=== PATIENT | female | born 1995 | race Caucasian/White ===

== ENCOUNTER 2022-04-08 23:01 | Inpatient (IN) | payer SELFPAY ==
[2022-04-08] MEDS: nicotine 2 mg Gum BUCCAL (23:17)
[2022-04-08 23:31] VITALS: BMI 23.6
[2022-04-09 06:00] VITALS: RESP 15
--- NOTE | 2022-04-09 10:58 | NUR.SHIFT ---
Shift assessment done by me with AYUSH Roland, as a witness. No issues.
[2022-04-09 14:00] VITALS: BP 110/65; PULSE 92; RESP 18; TEMP 36.7; O2SAT 96
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
[2022-04-09] MEDS: nicotine 21 mg Patch 1 PATCH TRANSDERMA (18:48)
[2022-04-09 20:58] VITALS: BP 101/62; PULSE 78; RESP 18; O2SAT 96
[2022-04-10 05:51] VITALS: BP 99/62; PULSE 71; RESP 16; O2SAT 96
[2022-04-10] MEDS: nicotine 2 mg Gum BUCCAL ×3 (13:02→18:51)
[2022-04-10 14:00] VITALS: BP 96/60; PULSE 84; RESP 14; TEMP 37; O2SAT 97
--- NOTE | 2022-04-10 16:52 | W.PM.NPUPNS ---
Subjective NPU Subjective: Patient is 26 year old white female admitted and involuntarily hospitalized after having intrusive thought to hurt self by jumping in front of the tractor she was on with reports having some vague clairvoyant abilities and overvalued ideas on initial conversation. She remained compliant and cooperative on milieu. She reports good sleep. She reported no thoughts of hurting herself. She reports that she feels ready to return home. She continued to minimize her marijuana and methamphetamine use. Patient had reported some frustration with her economic situation. She denied any feelings of hopelessness or worthlessness. She denied any racing thoughts. She denied any auditory or visual hallucinations. Mental Status Exam MSE Comments: She is a thin white female who appeared her stated age. Her gait appeared within normal limits her hygiene was fair. There was no evidence of any abnormal involuntary motor movements tics or tremors appreciated. Her mood was described as good Her affect appeared flat. There was no clear evidence of delusional thinking. She did not appear to be responding to internal stimuli. Her attention appeared adequate. her concentration was fair. Speech was normal in regards to rate, rhythm and prosody. Insight appeared to be poor. Her judgment at this time is guarded. Her impulse control appeared limited at this time. Vitals/I&O/Wt Last Vital Signs Temp 98.6 F 04/10/22 14:00 Pulse 84 04/10/22 14:00 Resp 14 04/10/22 14:00 BP 96/60 04/10/22 14:00 Pulse Ox 97 04/10/22 14:00 O2 Del Method 04/08/22 23:31 Weight last 48 hrs Weight 72.575 kg A&P Assessment and plan (1) Suicidal ideation: Status: Acute (2) Impulse control disorder: Status: Acute Plan This is a 26-year-old white female who had reported having an intense intrusive thought of jumping out in front of the tractor that she was on with reports of 1 previous hospitalization in her adolescence. She does not currently endorse thoughts of hurting herself and does not report depressed mood at this time. 1. Consider medication to target anxiety/depression, patient refusing any at this time. Consider referral for substance abuse. 2.? Encourage individual, group and milieu therapy 3.? Continue q-15 minute check for safety 4.? Recommend sober living treatment at the highest level of care to which the patient is willing to commit. Involuntary Hold Information 96 Hour Hold: 96 Hour Involuntary Admission: Yes 96 Hour Hold Ending Date: 04/15/22 96 Hour Hold Ending Time: 23:00 Attestations NPU Medical Necessity Statement*: ? Inpatient hospitalization is medically necessary to prevent access to lethal means, to reevaluate any medications and to coordinate a safe discharge. Patient's likely length of stay is three to five days. Coding Level of Care Code Established Pt Acute Military Pay Technician for Chg Fwd Patient Type Established History Problem Focused Exam Problem Focused Medical Decision Making Straight Forward Diagnoses Suicidal ideation R45.851 Impulse control disorder F63.9
[2022-04-10 21:12] VITALS: BP 93/54; PULSE 81; RESP 16; TEMP 36.7; O2SAT 96
[2022-04-11 06:00] VITALS: BP 93/60; PULSE 92; RESP 16; TEMP 36.6; O2SAT 95
--- NOTE | 2022-04-11 13:26 | P.NPUPN_ITS ---
Subjective NPU Subjective: Patient is 26 year old white female admitted and involuntarily hospitalized after having intrusive thought to hurt self by jumping in front of the tractor she was on with reports having some vague clairvoyant abilities and overvalued ideas on initial conversation. Patient reports feeling better. She reports no suicidal thoughts or intrusive thoughts about jumping in front of a tractor vehicle. She had continued to minimize the use of illicit substances nor did she endorse any problems with alcohol. The patient states that she was willing to attend a counseling session when discharged. Mental Status Exam MSE Comments: She is a thin white female who appeared her stated age. Her gait appeared within normal limits her hygiene was fair. There was no evidence of any abnormal involuntary motor movements tics or tremors appreciated. Her mood was described as good Her affect appeared less restricted. There was no clear evidence of delusional thinking, she denied any auditory or visual hallucinations and did not appear to be responding to internal stimuli. Her attention appeared adequate. her concentration was fair. Speech was normal in regards to rate, rhythm and prosody. Insight appeared to be poor. Her judgment at this time is guarded. Her impulse control appeared limited. . Vitals/I&O/Wt Last Vital Signs Temp 98 F 04/11/22 14:00 Pulse 103 H 04/11/22 14:00 Resp 17 04/11/22 14:00 BP 97/63 04/11/22 14:00 Pulse Ox 98 04/11/22 14:00 O2 Del Method 04/08/22 23:31 Weight last 48 hrs Weight 75.024 kg A&P Assessment and plan (1) Suicidal ideation: Status: Acute (2) Impulse control disorder: Status: Acute Plan This is a 26-year-old white female who had reported having an intense intrusive thought of jumping out in front of the tractor that she was on with reports of 1 previous hospitalization in her adolescence. She does not currently endorse thoughts of hurting herself and does not report depressed mood at this time. 1. Consider medication to target anxiety/depression, patient refusing any at this time. Consider referral for substance abuse. Patient remains here involuntarily and we are awaiting referral for outpatient treatment 2.? Encourage individual, group and milieu therapy 3.? Continue q-15 minute check for safety 4.? Recommend sober living treatment at the highest level of care to which the patient is willing to commit. Involuntary Hold Information 96 Hour Hold: 96 Hour Involuntary Admission: Yes 96 Hour Hold Ending Date: 04/15/22 96 Hour Hold Ending Time: 23:00 Attestations NPU Medical Necessity Statement*: ? Inpatient hospitalization is medically necessary to prevent access to lethal means, to reevaluate any medications and to coordinate a safe discharge. Patient's likely length of stay is one to two days. Coding Level of Care Code Established Pt Acute Heat And Frost Insulator for Chg Fwd Patient Type Established History Problem Focused Exam Problem Focused Medical Decision Making Straight Forward Diagnoses Suicidal ideation R45.851 Impulse control disorder F63.9
[2022-04-11 14:00] VITALS: BP 97/63; PULSE 103; RESP 17; TEMP 36.6; O2SAT 98
[2022-04-11] MEDS: nicotine 21 mg Patch 1 PATCH TRANSDERMA (14:10)
--- NOTE | 2022-04-11 18:10 | PC.NURSE ---
TOOK OFF NICOTINE PATCH, REQUESTING RADHA GUM, EDUCATED PATIENT THAT WE HAVE TO WAIT AT LEAST 2 HOURS BEFORE GUM CAN BE ADMINISTERED. PATCH DISPOSED OF PROPERLY BY NURSING STAFF.
[2022-04-11 21:31] VITALS: RESP 18
[2022-04-12 06:00] VITALS: BP 95/59; PULSE 67; RESP 17; TEMP 36.7; O2SAT 96
[2022-04-12] MEDS: nicotine 2 mg Gum BUCCAL (09:56)
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
[2022-04-12 12:26] VITALS: BP 95/59; PULSE 67; RESP 17; TEMP 36.7; O2SAT 96
== END 2022-04-12 13:38 | disposition home or self-care (01) | DRG 886 ==
PROVIDERS: Admitting Provider Psychiatry & Neurology Psychiatry; Visit Provider Psychiatry & Neurology Psychiatry
DX: F63.9 Impulse disorder, unspecified (principal); R45.851 Suicidal ideations; F15.90 Other stimulant use, unspecified, uncomplicated; F12.90 Cannabis use, unspecified, uncomplicated
CPT/HCPCS: 97150; 97165